=== PATIENT | female | born 1985 | race Caucasian/White ===

== ENCOUNTER → 2023-04-26 10:01 | Outpatient (CLI) | payer OTHER, SELFPAY ==
--- NOTE | ~2023-04-26 | XR_ITS ---
EXAMINATION: XR lumbar spine 2-3V DATE: 04/26/2023 10:22 INDICATION: Right buttock pain TECHNIQUE: Anteroposterior and lateral views of the lumbar spine, and cone-down lateral view of the l umbosacral junction were obtained. COMPARISON: None. FINDINGS: Bone alignment is normal. There is no fracture. There is moderate to severe loss of interve rtebral disc space height at L5-S1. The vertebral body heights are maintained. A surgical clip in the right pelvis likely reflects a tubal ligation clip. IMPRESSION: 1. Moderate lumbar spondylosis at L5-S1 without acute findings. Reviewed, dictated and finalized at location L. [employer]
== END ==
PROVIDERS: PCP Nurse Practitioner Adult Health; Visit Provider Nurse Practitioner Adult Health
DX: M43.06 Spondylolysis, lumbar region (principal); M51.36 Other intervertebral disc degeneration, lumbar region
CPT/HCPCS: 72100

== ENCOUNTER → 2023-05-26 07:36 | Outpatient (CLI) | payer OTHER, SELFPAY ==
--- NOTE | ~2023-05-26 | MR_ITS ---
EXAMINATION: MR lumbar spine wo con DATE: 05/26/2023 08:16 INDICATION: Spondylosis w/o myelopathy or radiculopathy. rt sided lbp w/ . TECHNIQUE: Magnetic resonance imaging (MRI) of the lumbar spine was performed without intravenous con trast. Sequences included sagittal T2-weighted FSE, sagittal T2-weighted FS FSE, sagittal T1-weighted FSE, and axial T2-weighted FSE. COMPARISON: X-ray L-spine 04/26/2023 FINDINGS: The last fully formed and hydrated disc is designated L5-S1. Rudimentary disc at S1-S2. Low signal T1 and T2 changes in the anterior portions of the L5 and S1 vertebral bodies with a thin rim of surrounding T2 hyperintensity likely representing edema, otherwise the marrow signal is benign and homogenous. Conus terminates at L1. Severe loss of disc height and hydration at L5-S1. The following disc levels are specifically discussed: T11-T12: The disc does not extend beyond the endplate margin. There is no facet joint osteoarthritis. There is no neural foraminal stenosis. There is no central canal stenosis. T12-L1: The disc does not extend beyond the endplate margin. There is no facet joint osteoarthritis. There is no neural foraminal stenosis. There is no central canal stenosis. L1-L2: The disc does not extend beyond the endplate margin. There is no facet joint osteoarthritis. T here is no neural foraminal stenosis. There is no central canal stenosis. L2-L3: The disc does not extend beyond the endplate margin. There is mild bilateral facet joint osteo arthritis. There is no neural foraminal stenosis. There is no central canal stenosis. L3-L4: The disc does not extend beyond the endplate margin. There is mild bilateral facet joint osteo arthritis. There is no neural foraminal stenosis. There is no central canal stenosis. L4-L5: Mild diffuse bulge. There is moderate bilateral facet joint osteoarthritis. There is minimal l eft and no right neural foraminal stenosis. There is no central canal stenosis. L5-S1: Mild diffuse bulge with displacement of disc material anteriorly. There is moderate bilateral facet joint osteoarthritis. There is mild left and moderate right neural foraminal stenosis. There is no central canal stenosis. IMPRESSION: Severe spondylosis at L5-S1. Reviewed, dictated and finalized at location K. [employer]
== END ==
PROVIDERS: PCP Nurse Practitioner Adult Health; Visit Provider Nurse Practitioner Adult Health
DX: M47.817 Spondylosis without myelopathy or radiculopathy, lumbosacral region (principal)
CPT/HCPCS: 72148